=== PATIENT | female | born 1985 | race Caucasian/White ===

== ENCOUNTER 2020-08-17 00:15 | Emergency (ER) | payer OTHER | END 2020-08-17 02:02 | disposition home or self-care (01) | LOC: FER 00:15 | DX: S16.1XXA Strain of muscle, fascia and tendon at neck level, initial encounter (principal); S00.93XA Contusion of unspecified part of head, initial encounter; W18.2XXA Fall in (into) shower or empty bathtub, initial encounter; W22.8XXA Striking against or struck by other objects, initial encounter | CPT/HCPCS: 70450; 72125; J1885 ==